=== PATIENT | female | born 1985 | race African-American/Black ===

== ENCOUNTER 2024-01-28 06:47 | Outpatient (REF) | payer OTHER, SELFPAY ==
--- NOTE | ~2024-01-28 | US_ITS ---
EXAMINATION: US PELVIS CLINICAL INFORMATION: Check IUD COMPARISON: None available. TECHNIQUE: Ultrasound of the pelvis is performed using both transabdominal and transvaginal transducers along with Doppler. Transvaginal imaging is performed due to inadequate visualization transabdominally. FINDINGS: Uterus: The uterus is anteverted and measures 13.5 x 5.0 x 7.2 cm. With uterine volume measured 250 cc The double wall endometrial thickness is 0.5 cm with small amount of fluid. There is most likely is 0.5 x 0.5 x 0.9 cm endometrial polyp Uterus revealed multiple uterine fibroids measured 6.2 x 7.7 x 6.4 cm on the left frontal, 5.0 x 5.0 x 5.8 cm in the right side of the fundus, and 4.1 x 5.1 x 5.0 cm in the right side of the body. Adnexa: Both ovaries are visualized. There is normal color flow to the adnexa. There is no ovarian torsion. There is no pelvic ascites or fluid collection. IUD visualized but due to multiple fibroids and uterine angle unable to confirm exact location. Right ovary measures 2.7 x 2.5 x 1.6 cm. There are no cysts or masses Left ovary measures 3.8 x 2.6 x 3.0 cm. There is no cysts visualized. US/US pelvic and transvaginal IMPRESSION: Multiple uterine fibroids. IUD in place but exact location couldn't be confirmed due to multiple fibroids and uterine angle Electronically signed by: Kym Escobar MD 01/28/2024 05:37 PM [facility]
== END 2024-01-28 06:48 | disposition home or self-care (01) ==
LOC: HO.UMASIMG 06:47
PROVIDERS: Visit Provider Nurse Practitioner Women's Health
DX: Z30.431 Encounter for routine checking of intrauterine contraceptive device (principal)
CPT/HCPCS: 76830; 76856